=== PATIENT | male | born 1960 | race Caucasian/White ===

== ENCOUNTER 2016-11-15 13:34 | Emergency (ER) | payer OTHER ==
[~2016-11-15] VITALS: Ht 172.7 cm; Wt 92.4 kg
[~2016-11-15 13:34] MED LIST: LAMO200T PO; SERT100 PO
[2016-11-15 13:37] VITALS: BP 138/99; PULSE 107; RESP 15; TEMP 100.4; O2SAT 96
[2016-11-15] MEDS ORDERED: ZOLO100T PO (13:54)
[2016-11-15] MEDS ORDERED: LAMI200T PO (13:54)
--- NOTE | 2016-11-15 14:20 | PD ---
HPI Chief Complaint: Cold / Flu Symptoms Time Seen by Provider: 14:17 Travel History International Travel<30 days: No Contact w/Intl Traveler<30days: No Traveled to known affect area: No History of Present Illness HPI 56-year-old male presents to the ED for 1 week history of malaise, clear rhinorrhea, nonproductive cough, sneezing, sore throat, shortness of breath. Symptoms onset gradually. Patient endorses chills and sweats, has not measured a temperature home. He endorses pleuritic chest pain with the cough. He denies nausea and vomiting. He states again several at home remedies including echinacea, vitamin C, encouraged to use with no improvement of symptoms. 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 He did not receive this years flu vaccine. NKDA. PFSH Past Medical History Bipolar Disorder: Yes Diminished Hearing: No Immunizations Current: Yes Tetanus Vaccination: > 5 Years Influenza Vaccination: No ?: Not Past Surgical History Eye Surgery: Yes (L VITRECTOMY retina) Social History Alcohol Use: No Tobacco Use: No Substance Use: No Allergies-Medications (Allergen,Severity, Reaction): Coded Allergies: No Known Allergies (Verified , 11/15/16) Reported Meds & Prescriptions Reported Meds & Active Scripts Active Tessalon Perles (Benzonatate) 100 Mg Cap 200 Mg PO TID PRN Reported Zoloft (Sertraline HCl) 100 Mg Tab 200 Mg PO DAILY Lamictal (Lamotrigine) 200 Mg Tab 200 Mg PO DAILY Review of Systems Except as stated in HPI: all other systems reviewed are Neg Physical Exam Narrative GENERAL: Well-nourished, well-developed nontoxic appearing white male in no acute distress. SKIN: Warm and dry. HEAD: Normocephalic. Atraumatic. EYES: No scleral icterus. No injection or drainage. PERRLA. EOMI. ENT: Pearly cheung tympanic membranes bilaterally. Nasal mucosa is moist. Oropharynx mild posterior erythema. No edema or exudate. NECK: Supple, trachea midline. No JVD or lymphadenopathy. CARDIOVASCULAR: Regular rate and rhythm without murmurs, gallops, or rubs. 2+ DP and radial pulses bilaterally. RESPIRATORY: Breath sounds clear and equal bilaterally. No accessory muscle use. Wet sounding cough. GASTROINTESTINAL: Abdomen soft, non-tender, nondistended. + Bowel sounds MUSCULOSKELETAL: No cyanosis, or edema. The patient is ambulatory and moves the extremities spontaneously. BACK: Nontender without obvious deformity. No CVA tenderness. Data Data Last Documented VS Vital Signs Date Time Temp Pulse Resp B/P Pulse Ox O2 Delivery O2 Flow Rate FiO2 11/15/16 13:54 96 Room Air 11/15/16 13:37 100.4 107 15 138/99 Orders Influenzae A/B Antigen (11/15/16 14:04) Group A Rapid Strep Screen (11/15/16 14:04) Chest, Single Ap (11/15/16 ) Acetaminophen (Tylenol) (11/15/16 14:30) Strep Culture (Group A) (11/15/16 14:20) MDM Medical Decision Making Medical Screen Exam Complete: Yes Emergency Medical Condition: Yes Differential Diagnosis Viral syndrome versus influenza versus pharyngitis versus strep pharyngitis versus pneumonia versus other Narrative Course 56-year-old male presents to the ED for 1 week history of malaise, clear rhinorrhea, nonproductive cough, sneezing, sore throat, shortness of breath. Symptoms onset gradually. Patient endorses chills and sweats, has not measured a temperature home. He endorses pleuritic chest pain with the cough. He denies nausea and vomiting. He did not receive this years flu vaccine. Vitals reviewed. Patient is febrile and tachycardic on presentation. Physical exam reveals a nontoxic-appearing white male in no acute distress. There is mild posterior oropharyngeal erythema but the remaining physical exam is unremarkable. Patient was administered Tylenol by mouth. Rapid strep swab negative. Nasal wash positive for influenza. Chest x-ray with no evidence of acute cardiopulmonary disease per radiology read. This is the flu. Patient is beyond the window for Tamiflu. He is instructed to hydrate, rest, take Tylenol or Advil every 4-6 hours as needed for fever and body aches. He was prescribed a short course of Tessalon Perles to be taken at bedtime to decrease cough and promote restful sleeping. He indicated understanding of the discharge instructions and is agreeable to the care plan. The patient is stable and discharged home. Diagnosis Primary Impression: Influenza Referrals: Primary Care Physician Patient Instructions: General Instructions, Influenza (ED) Additional Instructions: Rest, hydrate. Push fluids such as sports drinks, Pedialyte, popsicles, clear broth. Continue with symptomatic treatment with OTC medications.. Tylenol or Motrin as described on the label, as needed for continued fever and body aches. Tessalon Perles at bedtime to reduce cough. Increase handwashing frequently to avoid the spread of the virus to other family members and the community. Disinfect commonly touched surfaces such as light switches, microwaves, remote controls. Replace toothbrush at the end of this illness. Follow-up with the primary care provider this week. Return to the ED for any urgent or emergent medical condition. Scripts Benzonatate (Tessalon Perles)100 Mg [id number] Mg PO TID PRN (COUGH) #7 CAP Ref 0 Prov:Juan Upton MD 11/15/16 Disposition: 01 DISCHARGE HOME Condition: Stable Marlene Mckeon Nov 15, 2016 14:20
[2016-11-15] MEDS ORDERED: ACETAMINOPHEN 325 MG TAB PO ONE (14:30)
--- NOTE | 2016-11-15 14:44 | RADHPO ---
EXAM DATE/TIME: 11/15/2016 14:27 [facility] COMPARISON: No previous studies available for comparison. INDICATIONS : Cough, short of breath, fever, chest pains MEDICAL HISTORY : None. SURGICAL HISTORY : None. ENCOUNTER: Initial ACUITY: 1 week PAIN SCORE: 6/10 LOCATION: Bilateral chest FINDINGS: The lungs are clear without infiltrate, nodule, or mass. There is no appreciable pleural effusion fo r technique. Heart and mediastinum are unremarkable. There is old healed left clavicular fracture. CONCLUSION: No acute cardiopulmonary disease. Trinidad Humphrey MD on November 15, 2016 at 14:41 Board Certified Radiologist. This report was verified electronically.
[2016-11-15] MEDS ORDERED: BENZ100 PO (15:08)
== END 2016-11-15 15:24 | disposition home or self-care (01) ==
LOC: PHEFT 13:34
DX: J11.1 Influenza due to unidentified influenza virus with other respiratory manifestations (principal); R53.81 Other malaise; R05 Cough; R06.7 Sneezing; R07.0 Pain in throat; R06.02 Shortness of breath; R07.81 Pleurodynia; R50.9 Fever, unspecified; R00.0 Tachycardia, unspecified; Z86.59 Personal history of other mental and behavioral disorders
CPT/HCPCS: 71010; 87081; 87804; 87880; 99284